=== PATIENT | male | born 1985 | race Caucasian/White ===

== ENCOUNTER 2017-07-21 10:41 | Emergency (ER) | payer OTHER ==
[~2017-07-21] VITALS: Ht 162.6 cm; Wt 72.6 kg
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
[2017-07-21] MEDS ORDERED: PANTOPRAZOLE SO40 M1 PO (12:03)
[2017-07-21] MEDS ORDERED: ZITHROMAX250 M2 PO (12:06)
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
[2017-07-21 12:37] VITALS: BP 122/75
== END 2017-07-21 12:39 ==
LOC: ERH 10:41
DX: I50.9 Heart failure, unspecified (principal)
CPT/HCPCS: 73630-RT; 90471; 90714